=== PATIENT | female | born 1965 | race Caucasian/White ===

== ENCOUNTER → 2017-12-20 | Outpatient (CLI) | payer OTHER ==
[~2017-12-20] VITALS: Ht 172.7 cm; Wt 93.0 kg
[~2017-12-20] MED LIST: ASPIR 8181 M1 PO; CALCIUM 600 +1 EAC1 PO; CLARITIN-D 121 EAC1 PO; ENDUR-ACIN500 MG PO; FISH OIL 1,001000 M2 PO; HORMONE PO; MAGOX 400400 MG PO; MATZIM LA180 MG PO; OMEPRAZOLE40 MG PO; UNICOMPLEX M TA1 TA1 PO; VALACYCLOVIR1000 MG PO; VITAMIN D3400 UNI1 PO; ZOLOFT50 MG PO
--- NOTE | ~2017-12-20 | CATHLAB ---
[facility] [address] [email or web address] [address] INVASIVE PROCEDURE REPORT Name: AFSHANMOISES Cayetano Room #: [id number] Admission: 12/20/17 Attend Phys: Fito Rosales Discharge: Date of : 63 Date of Service: 12/23/17 1025 Report #: [id number] THIS REPORT FOR: //name// APPROVED REPORT Study performed: 12/20/2017 10:27:44 Patient Details Patient Status: Out-Patient Room #: The patient is a 52 year-old female Event Personnel Fito Dorantes Splitter Head, Heather Lim RN RN, Dillon Atkinson [place], Christine RTNeelam Monitor, Rimma Davidson Monitor Procedures Performed Art Access - R femoral artery* [id number] Initial Mod Sed Same Phys/QHP Gr5y [id number] Left Heart Cath w/or w/o Coronaries [id number] [facility] Hemostasis with Manual pressure supervision of conscious sedation Indication Positive stress test, Chest pain Procedure Narrative The patient was brought electively to the Cardiac Catheterization Laboratory and was prepped and draped in a sterile manner. The Right Groin^ was infiltrated with 1% Lidocaine subcutaneous anesthesia. A PINNACLE 4FR Sheath #[id number] sheath was inserted into the RFA^. Coronary angiography was performed using coronary diagnostic catheters. The right coronary system was accessed and visualized with a JR 4 catheter. The left coronary system was accessed and visualized with a JL 4 catheter. The left ventricle was accessed and visualized with a Pigtail catheter. Left ventricular/Aortic Valve gradient assessed via catheter pullback. Hemostasis was obtained with manual pressure following sheath removal without any complications. The patient tolerated the procedure well and there were no complications associated with the procedure. There was no hematoma. Intraoperative Conscious Sedation Sedation start time: 10:51 Case end Time: 11:02 Fluoro Time: 1.46 minutes [facility] [address] [address] INVASIVE PROCEDURE REPORT Name: MOISES CAVANAUGH Room #: REG [id number] Admission: 12/20/17 Attend Phys: Fito Rosales Discharge: Date of : 63 Date of Service: 12/23/17 1025 Report #: [id number] Dose: DAP 2212.60 cGycm2 286 mGy Contrast Type and Amount: Omnipaque 40 ml Coronary Angiography The patient's coronary anatomy is right dominant. Diagnostic Cath Left Main N as normal origin and caliber bifurcates left anterior descending left circumflex is free of high-grade disease LAD The dentist is a moderate caliber type II vessel which courses in the anterior interventricular sulcus. He is also diagonal and septal branches free of stenosis. In the beginning of the proximal mid LAD there is an eccentric 30-40% plaque which is not flow-limiting. The vessel reconstitutes coursing without significant stenotic lesions noted Diagonal 1 All caliber vessel free of high-grade disease Circumflex Caliber vessel courses in the AV groove posteriorly giving rise to marginal branches. There is no significant high-grade lesions identified OM1 Moderate caliber lateral posterior wall marginal branch free of stenotic lesions although tortuous in its course towards the apex Right Coronary Moderate caliber normal origin vessel courses posteriorly giving rise to posterior wall branches posterior descending artery. High-grade disease R PDA Moderate caliber vessel with only mild narrowing of less than 30% proximally which then reconstitutes as it courses towards the apex. High-grade stenotic lesions Left Ventriculography Left Ventriculography was not performed. Hemodynamics The aortic pressure is 132/86 mmHg with a mean of 96 mmHg. The left ventricular pressure is 148/3 mmHg with a mean of mmHg. The left ventricular end diastolic pressure is 28 mmHg. Conclusion 1. Essentially normal coronary arteries with only mild plaquing noted [facility] [address] [place] [address] INVASIVE PROCEDURE REPORT Name: AFSHANMOISES Room #: REG [facility]#: [id number] Admission: 12/20/17 Attend Phys: Fito Rosales Discharge: Date of : 63 Date of Service: 12/23/17 1025 Report #: [id number] 2. Normal hemodynamics Recommendations Cardiac Risk Reduction Program <ELECTRONICALLY SIGNED> By: Fito Dorantes MD 12/23/17 1025 1025 102 Fito Dorantes MD /INF
[2017-12-20 07:56] VITALS: BP 122/79
[2017-12-20 08:21] LABS: HEMATOCRIT 39.8 % (37.0-47.0); HEMOGLOBIN 13.3 gm/dL (12.0-15.0); MCH 30.5 pg (26.0-34.0); MCHC 33.5 g/dL (28.0-37.0); RBC 4.37 mil/uL (4.20-5.00); RDW 13.5 % (10.5-14.5); WBC 4.1 thou/uL (4.0-11.0)
[2017-12-20 08:33] LABS: CALCIUM 9.2 mg/dL (8.5-10.1); CREATININE 0.8 mg/dL (0.6-1.0); POTASSIUM 3.8 mmol/L (3.5-5.1)
== END | disposition home or self-care (01) ==
LOC: CATH 07:45
PROVIDERS: Internal Medicine
DX: I25.10 Atherosclerotic heart disease of native coronary artery without angina pectoris (principal); I10 Essential (primary) hypertension; G43.909 Migraine, unspecified, not intractable, without status migrainosus; G47.33 Obstructive sleep apnea (adult) (pediatric); K21.9 Gastro-esophageal reflux disease without esophagitis; E66.09 Other obesity due to excess calories; F32.9 Major depressive disorder, single episode, unspecified; Z90.710 Acquired absence of both cervix and uterus; Z98.890 Other specified postprocedural states; Z82.49 Family history of ischemic heart disease and other diseases of the circulatory system; Z79.82 Long term (current) use of aspirin; Z79.899 Other long term (current) drug therapy